=== PATIENT | male | born 1965 | race Caucasian/White ===

== ENCOUNTER 2018-03-18 11:27 | Inpatient (IN) | payer OTHER ==
[2018-03-18 11:58] VITALS: BMI 22.8
--- NOTE | 2018-03-18 15:06 | HP ---
CIWA Score Nausea/Vomitin-No Nausea/No Vomiting Muscle Tremors: 4-Moderate,w/Arms Extend Anxiety: 3 Agitation: 3 Paroxysmal Sweats: 3 Orientation: 0-Oriented Tacttile Disturbances: 1-Very Mild Itch/Numbness Auditory Disturbances: 0-None Visual Disturbances: 0-None Headache: 0-None Present CIWA-Ar Total Score: 14 - Admission Criteria OASAS Guidelines: Admission for Medically Managed Detox: Requires at least one of the followin. CIWA greater than 12 2. Seizures within the past 24 hours 3. Delirium tremens within the past 24 hours 4. Hallucinations within the past 24 hours 5. Acute intervention needed for co occurring medical disorder 6. Acute intervention needed for co occurring psychiatric disorder 7. Severe withdrawal that cannot be handled at a lower level of care (continued vomiting, continued diarrhea, abnormal vital signs) requiring intravenous medication and/or fluids 8. Admission ROS [facility] - HPI Chief Complaint: I need to stop drinking so much. Allergies/Adverse Reactions: Allergies Allergy/AdvReac Type Severity Reaction Status Date / Time No Known Drug Allergies Allergy Verified 03/18/18 13:11 History of Present Illness: pt is a 52yr old male with a history of alcohol dependence seeking detox for treatment. pt is also on a MMTP program last dose received today with 30mg. Pending verification. Exam Limitations: No Limitations - Ebola screening Have you traveled outside of the country in the last 21 days: No Have you had contact with anyone from an Ebola affected area: No Have you been sick,other than usual withdrawal symptoms: No Do you have a fever: No - Review of Systems Constitutional: Diaphoresis, Loss of Appetite, Night Sweats, Changes in sleep EENT: reports: Tearing, Nose Congestion Respiratory: reports: No Symptoms reported Cardiac: reports: No Symptoms Reported GI: reports: Diarrhea, Poor Fluid Intake : reports: No Symptoms Reported Musculoskeletal: reports: Back Pain Integumentary: reports: Flushing, Sweating Neuro: reports: Tingling, Tremors Endocrine: reports: Excessive Sweating, Flushing, Intolerance to Cold, Intolerance to Heat Hematology: reports: No Symptoms Reported Psychiatric: reports: Judgement Intact, Mood/Affect Appropiate, Orientated x3, Agitated, Anxious Other Systems: Reviewed and Negative Patient History - Patient Medical History Hx Anemia: No Hx Asthma: No Hx Chronic Obstructive Pulmonary Disease (COPD): No Hx Cancer: No Hx Cardiac Disorders: No Hx Congestive Heart Failure: No Hx Hypertension: Yes (non compliant with medications) Hx Hypercholesterolemia: No Hx Pacemaker: No HX Cerebrovascular Accident: No Hx Seizures: No Hx Dementia: No Hx Diabetes: No Hx Gastrointestinal Disorders: No Hx Liver Disease: No Hx Genitourinary Disorders: No Hx Sexually Transmitted Disorders: No Hx Renal Disease (ESRD): No Hx Thyroid Disease: No Hx Human Immunodeficiency Virus (HIV): No (negative) Hx Hepatitis C: Yes Hx Depression: Yes Hx Suicide Attempt: No Hx Bipolar Disorder: Yes Hx Schizophrenia: No Other Medical History: non compliant with medication - Patient Surgical History Past Surgical History: Yes Hx Neurologic Surgery: No Hx Cataract Extraction: No Hx Cardiac Surgery: No Hx Lung Surgery: No Hx Breast Surgery: No Hx Breast Biopsy: No Hx Abdominal Surgery: No Hx Appendectomy: No Hx Cholecystectomy: No Hx Genitourinary Surgery: No Hx Orthopedic Surgery: Yes (Left shoulder ORIF in 1983) Anesthesia Reaction: No - PPD History Previous Implant?: Yes Documented Results: Negative w/o proof Implanted On Prior [facility] Admission?: No PPD to be Administered?: Yes - Reproductive History Patient is a Female of Child Bearing Age (11 -55 yrs old): No - Smoking Cessation Smoking history: Current every day smoker Have you smoked in the past 12 months: Yes Aproximately how many cigarettes per day: 2 Cigars Per Day: 0 Hx Chewing Tobacco Use: No Initiated information on smoking cessation: Yes 'Breaking Loose' booklet given: 03/18/18 - Substance & Tx. History Hx Alcohol Use: Yes Hx Substance Use: No Substance Use Type: Alcohol Hx Substance Use Treatment: Yes (last detox [facility] 2018 8months ago) - Substances Abused Alcohol Route: Oral Frequency: Daily Amount used: 10 24oz of beer Age of first use: 13 Date of Last Use: 03/18/18 Family Disease History - Family Disease History Family Disease History: Diabetes: Mother Admission Physical Exam [facility] - Vital Signs Vital Signs: Vital Signs - 24 hr 03/18/18 11:56 Temperature 97.8 F Pulse Rate 115 H Respiratory 18 Rate Blood Pressure 137/97 - Physical General Appearance: Yes: Appropriately Dressed, Thin, Tremorous, Irritable, Sweating, Anxious HEENTM: Yes: Hearing grossly Normal, Normal Voice, Nasal Congestion, Rhinorrhea Respiratory: Yes: Lungs Clear, Normal Breath Sounds, No Respiratory Distress Neck: Yes: No masses,lesions,Nodules Breast: Yes: Within Normal Limits Cardiology: Yes: Regular Rhythm, Regular Rate, S1, S2, Tachycardia Genitourinary: Yes: Within Normal Limits Back: Yes: Normal Inspection Musculoskeletal: Yes: full range of Motion Extremities: Yes: Normal Capillary Refill, Normal Inspection, Non-Tender, Tremors Neurological: Yes: Fully Oriented, Alert, Normal Response Integumentary: Yes: Normal Color, Diaphoresis Lymphatic: Yes: Within Normal Limits - Diagnostic (1) Alcohol dependence with uncomplicated withdrawal Current Visit: Yes Status: Chronic (2) Methadone maintenance therapy patient Current Visit: Yes Status: Chronic Comment: pt last dose of methadone received today; pending verification. Cleared for Admission [facility] - Detox or Rehab [facility] Level of Care: Medically Managed Detox Regimen/Protocol: Librium [facility] Breath Alcohol Content Breath Alcohol Content: 0.116 Urine Drug Screen - Results Drug Screen Negative: No Urine Drug Screen Results: MTD-Methadone
[2018-03-18] MEDS ORDERED: guaiFENesin/D-METHORPHAN HB 10 ML UNIT-DOSE CUPS PO PRN (15:11)
[2018-03-18] MEDS ORDERED: MENTHOL/PHENOL 1 EACH UD MM PRN (15:11)
[2018-03-18] MEDS ORDERED: IBUPROFEN 400 MG TABLET (FP) PO PRN (15:11)
[2018-03-18] MEDS ORDERED: NICOTINE POLACRILEX 2 MG GUM BC PRN (15:11)
[2018-03-18] MEDS ORDERED: MAGNESIUM CITRATE 300 ML BOTTLE PO PRN (15:11)
[2018-03-18] MEDS ORDERED: MAG HYDROX/AL HYDROX/SIMETH 30 ML UNIT-DOSE CUP PO PRN (15:11)
[2018-03-18] MEDS ORDERED: ACETAMINOPHEN 325 MG TABLET (FP) PO PRN (15:11)
[2018-03-18] MEDS ORDERED: hydrOXYzine PAMOATE 50 MG CAPSULE (FP) PO PRN (15:11)
[2018-03-18] MEDS ORDERED: P-EPHED 60MG/TRIPROLIDI 2.5MG TABLET PO PRN (15:11)
[2018-03-18] MEDS ORDERED: LOPERAMIDE HCL 2 MG CAPSULE PO PRN (15:11)
[2018-03-18] MEDS ORDERED: MAGNESIUM HYDROX 2400MG/30ML ORAL SUSPENSION 30 ML CUP PO PRN (15:11)
[2018-03-18] MEDS ORDERED: chlordiazePOXIDE HCL 25 MG CAPSULE PO ONE (17:15)
[2018-03-18] MEDS: THIAMINE HCL 100 MG TABLET (FP) PO SCH (22:20)
[2018-03-18] MEDS: chlordiazePOXIDE HCL 25 MG CAPSULE PO SCH (22:21)
[2018-03-18 23:21] LABS: URINE APPEARANCE CLEAR; URINE BILIRUBIN NEGATIVE (<2.0 mg/dL); URINE COLOR AMBER; URINE GLUCOSE (UA) NEGATIVE (NEGATIVE); URINE KETONE NEGATIVE (NEGATIVE); URINE LEUK ESTERASE NEGATIVE (NEGATIVE); URINE NITRITE NEGATIVE (NEGATIVE); URINE PROTEIN 1+ (NEGATIVE)
[2018-03-18 23:27] LABS: URINE HYALINE CAST 10 /lpf; URINE MUCUS RARE
[2018-03-19] MEDS: MELATONIN 5 MG TABLETS PO PRN ×2 (00:55→22:36)
[2018-03-19] MEDS: chlordiazePOXIDE HCL 25 MG CAPSULE PO PRN ×2 (00:55→13:31)
[2018-03-19] MEDS: chlordiazePOXIDE HCL 25 MG CAPSULE PO SCH ×4 (05:22→22:36)
[2018-03-19] MEDS ORDERED: METHADONE HCL 10 MG TABLET PO ONE (09:52)
[2018-03-19] MEDS: LISINOPRIL 10 MG TABLET (FP) PO SCH (10:11)
[2018-03-19] MEDS: amLODIPine BESYLATE 5 MG TABLET (FP) PO SCH (10:11)
[2018-03-19] MEDS: PRENATAL VITAMINS W/ FOLIC ACID TABLET (FP) PO SCH (10:11)
[2018-03-19] MEDS: NICOTINE 7 MG/24 HOURS TOPICAL PATCH TD SCH (10:14)
[2018-03-19 11:07] LABS: ALBUMIN 3.4 g/dl (3.4-5.0); ALK PHOS 167 U/L (45-117); ANION GAP 9 MMOL/L (8-16); BILIRUBIN,TOTAL 1.8 mg/dL (0.2-1); BLOOD UREA NITROGEN 9 mg/dL (7-18); CALCIUM 9.3 mg/dL (8.5-10.1); CHLORIDE 95 mmol/L (98-107); CO2 27 mmol/L (21-32); CREATININE 0.9 mg/dL (0.55-1.3); GLUCOSE,RANDOM 120 mg/dL (74-106); POTASSIUM 4.1 mmol/L (3.5-5.1); SGOT/AST 230 U/L (15-37); SGPT/ALT 110 U/L (13-61); SODIUM 131 mmol/L (136-145); TOT PROT 8.8 g/dl (6.4-8.2)
[2018-03-19 11:18] LABS: HEMATOCRIT 35.3 % (35.4-49); HEMOGLOBIN 12.4 GM/dL (11.7-16.9); MCH 33.9 pg (25.7-33.7); MCHC 35.2 g/dl (32.0-35.9); MEAN CELL VOLUME 96.4 fl (80-96); PLATELET COUNT 88 K/MM3 (134-434); RBC 3.66 M/mm3 (4.00-5.60); RDW 13.3 % (11.9-15.9); WHITE BLOOD COUNT 4.3 K/mm3 (4.0-10.0)
--- NOTE | 2018-03-19 11:19 | PN ---
S CIWA - CIWA Score Nausea/Vomitin-No Nausea/No Vomiting Muscle Tremors: 3 Anxiety: 3 Agitation: 3 Paroxysmal Sweats: 3 Orientation: 0-Oriented Tacttile Disturbances: 0-None Auditory Disturbances: 0-None Visual Disturbances: 0-None Headache: 0-None Present CIWA-Ar Total Score: 12 S Progress Note (SOAP) Subjective: nausea sweats shakes interrupted sleep irritable Objective: 03/19/18 11:18 Vital Signs Temperature 95.9 F L 03/19/18 09:42 Pulse Rate 85 03/19/18 09:42 Respiratory Rate 18 03/19/18 09:42 Blood Pressure 146/95 03/19/18 09:42 O2 Sat by Pulse Oximetry (%) Laboratory Tests 03/18/18 03/19/18 23:00 07:00 Sodium 131 L Potassium 4.1 Chloride 95 L Carbon Dioxide 27 Anion Gap 9 BUN 9 Creatinine 0.9 Creat Clearance w eGFR > 60 Random Glucose 120 H Calcium 9.3 Total Bilirubin 1.8 H AST 230 H ALT 110 H Alkaline Phosphatase 167 H Total Protein 8.8 H Albumin 3.4 Urine Color [place] Urine Appearance Clear Urine pH 6.0 Ur Specific [place] 1.025 Urine Protein 1+ H Urine Glucose (UA) Negative Urine Ketones Negative Urine Blood Negative Urine Nitrite Negative Urine Bilirubin Negative Urine Urobilinogen 2.0 Ur Leukocyte Esterase Negative Urine WBC (Auto) 1 Urine RBC (Auto) 3 Hyaline Casts 10 Urine Mucus Rare labs noted [id number] ambulating no acute distress repeat cmp d/c tylenol Assessment: 03/19/18 11:20 withdrawal sx Plan: continue detox increase fluids repeat labs
[2018-03-19] MEDS ORDERED: PNEUMOC 13-VAL CONJ-DIP CRM/PF 0.5 ML DISP.SYRIN IM ONE (12:00)
[2018-03-19] MEDS ORDERED: PNEUMOCOCCAL 23 VACCINE 0.5 ML VIAL IM ONE (12:00)
--- NOTE | 2018-03-19 12:47 | EKG ---
Test Reason : Blood Pressure : / mmHG Vent. Rate : 071 BPM Atrial Rate : 071 BPM P-R Int : 136 ms QRS Dur : 080 ms QT Int : 382 ms P-R-T Axes : 074 067 070 degrees QTc Int : 415 ms NORMAL SINUS RHYTHM NORMAL ECG NO PREVIOUS ECGS AVAILABLE Confirmed by KIRK DORMAN, KRISTA ([id number]) on 03/19/2018 12:47:25 PM Referred By: Confirmed By:KRISTA BRADLEY MD
[2018-03-19] MEDS: THIAMINE HCL 100 MG TABLET (FP) PO SCH (22:36)
[2018-03-20] MEDS: METHADONE HCL 10 MG TABLET PO SCH (05:52)
[2018-03-20] MEDS: chlordiazePOXIDE HCL 25 MG CAPSULE PO SCH ×2 (05:52→10:46)
[2018-03-20 10:28] LABS: ALBUMIN 3.5 g/dl (3.4-5.0); ALK PHOS 175 U/L (45-117); ANION GAP 6 MMOL/L (8-16); BILIRUBIN,TOTAL 1.2 mg/dL (0.2-1); BLOOD UREA NITROGEN 15 mg/dL (7-18); CALCIUM 9.5 mg/dL (8.5-10.1); CHLORIDE 98 mmol/L (98-107); CO2 30 mmol/L (21-32); CREATININE 1.2 mg/dL (0.55-1.3); GLUCOSE,RANDOM 92 mg/dL (74-106); POTASSIUM 4.8 mmol/L (3.5-5.1); SGOT/AST 214 U/L (15-37); SGPT/ALT 111 U/L (13-61); SODIUM 133 mmol/L (136-145); TOT PROT 8.9 g/dl (6.4-8.2)
[2018-03-20] MEDS: PRENATAL VITAMINS W/ FOLIC ACID TABLET (FP) PO SCH (10:47)
[2018-03-20] MEDS: LISINOPRIL 10 MG TABLET (FP) PO SCH (10:47)
[2018-03-20] MEDS: amLODIPine BESYLATE 5 MG TABLET (FP) PO SCH (10:48)
[2018-03-20] MEDS: NICOTINE 7 MG/24 HOURS TOPICAL PATCH TD SCH (10:50)
[2018-03-20] MEDS ORDERED: LACTULOSE 20 GM/30 ML UDC (FOR ORAL USE ONLY) PO ONE (11:50)
--- NOTE | 2018-03-20 12:23 | PN ---
[facility] Progress Note Note: during assessment pt wanted to leave but when asked he states his brother was outside waiting. pt was also asked where he was at this time and he states he was at [facility]. Pt was aao to person, time, but not to place. Pt appeared restless. Ammonia level drawn 45.16. laculose ordered. pt is being compliant with staying in his room and taking the medication. Pt is not asking to leave at this time. will reassess and re draw ammonia levels tomorrow.
--- NOTE | 2018-03-20 12:30 | PN ---
[facility] CIWA - CIWA Score Nausea/Vomitin-No Nausea/No Vomiting Muscle Tremors: 3 Anxiety: 3 Agitation: 4-Moderately Restless Paroxysmal Sweats: No Perspiration Orientation: 1-Uncertain about Date Tacttile Disturbances: 0-None Auditory Disturbances: 0-None Visual Disturbances: 0-None Headache: 0-None Present CIWA-Ar Total Score: 11 [facility] Progress Note (SOAP) Subjective: restless shaky Objective: 03/20/18 12:29 Vital Signs Temperature 97.5 F L 03/20/18 09:33 Pulse Rate 99 H 03/20/18 09:33 Respiratory Rate 18 03/20/18 09:33 Blood Pressure 138/59 L 03/20/18 09:33 O2 Sat by Pulse Oximetry (%) Laboratory Tests 03/18/18 03/19/18 03/19/18 23:00 07:00 07:00 WBC 4.3 RBC 3.66 L Hgb 12.4 Hct 35.3 L MCV 96.4 H MCH 33.9 H MCHC 35.2 RDW 13.3 Plt Count 88 L MPV 9.0 Platelet Comment No clumping noted Sodium Potassium Chloride Carbon Dioxide Anion Gap BUN Creatinine Creat Clearance w eGFR Random Glucose Calcium Total Bilirubin AST ALT Alkaline Phosphatase Ammonia Total Protein Albumin Urine Color Darling Urine Appearance Clear Urine pH 6.0 Ur Specific [place] 1.025 Urine Protein 1+ H Urine Glucose (UA) Negative Urine Ketones Negative Urine Blood Negative Urine Nitrite Negative Urine Bilirubin Negative Urine Urobilinogen 2.0 Ur Leukocyte Esterase Negative Urine WBC (Auto) 1 Urine RBC (Auto) 3 Hyaline Casts 10 Urine Mucus Rare RPR Titer HIV 1&2 Antibody Screen Negative HIV P24 Antigen Negative 03/19/18 03/19/18 03/20/18 07:00 07:00 07:00 WBC RBC Hgb Hct MCV MCH MCHC RDW Plt Count MPV Platelet Comment Sodium 131 L 133 L Potassium 4.1 4.8 Chloride 95 L 98 Carbon Dioxide 27 30 Anion Gap 9 6 L BUN 9 15 Creatinine 0.9 1.2 Creat Clearance w eGFR > 60 > 60 Random Glucose 120 H 92 Calcium 9.3 9.5 Total Bilirubin 1.8 H 1.2 H AST 230 H 214 H ALT 110 H 111 H Alkaline Phosphatase 167 H 175 H Ammonia Total Protein 8.8 H 8.9 H Albumin 3.4 3.5 Urine Color Urine Appearance Urine pH Ur Specific [place] Urine Protein Urine Glucose (UA) Urine Ketones Urine Blood Urine Nitrite Urine Bilirubin Urine Urobilinogen Ur Leukocyte Esterase Urine WBC (Auto) Urine RBC (Auto) Hyaline Casts Urine Mucus RPR Titer Nonreactive HIV 1&2 Antibody Screen HIV P24 Antigen 03/20/18 09:03 WBC RBC Hgb Hct MCV MCH MCHC RDW Plt Count MPV Platelet Comment Sodium Potassium Chloride Carbon Dioxide Anion Gap BUN Creatinine Creat Clearance w eGFR Random Glucose Calcium Total Bilirubin AST ALT Alkaline Phosphatase Ammonia 45.16 H Total Protein Albumin Urine Color Urine Appearance Urine pH Ur Specific [place] Urine Protein Urine Glucose (UA) Urine Ketones Urine Blood Urine Nitrite Urine Bilirubin Urine Urobilinogen Ur Leukocyte Esterase Urine WBC (Auto) Urine RBC (Auto) Hyaline Casts Urine Mucus RPR Titer HIV 1&2 Antibody Screen HIV P24 Antigen elevated ammonia level laculose ordered will repeat lab tomorrow Assessment: 03/20/18 12:29 withdrawals sx Plan: hold todays librium laculose ordered repeat ammonia level continue with detox if pt is more lucid.
[2018-03-20] MEDS: LACTULOSE 20 GM/30 ML UDC (FOR ORAL USE ONLY) PO SCH ×3 (14:18→22:16)
[2018-03-20] MEDS: THIAMINE HCL 100 MG TABLET (FP) PO SCH (22:16)
[2018-03-20] MEDS: chlordiazePOXIDE 5 MG CAPSULE PO SCH (22:16)
[2018-03-21] MEDS: METHADONE HCL 10 MG TABLET PO SCH (05:14)
[2018-03-21] MEDS: chlordiazePOXIDE 5 MG CAPSULE PO SCH ×3 (05:53→17:21)
[2018-03-21] MEDS: NICOTINE 7 MG/24 HOURS TOPICAL PATCH TD SCH (10:07)
[2018-03-21] MEDS: PRENATAL VITAMINS W/ FOLIC ACID TABLET (FP) PO SCH (10:09)
[2018-03-21] MEDS: LACTULOSE 20 GM/30 ML UDC (FOR ORAL USE ONLY) PO SCH ×4 (10:09→22:25)
--- NOTE | 2018-03-21 18:24 | PN ---
[facility] Progress Note (SOAP) Subjective: sweats Objective: 03/21/18 18:22 A & O x 3 anxious ambulating steadily on unit Vital Signs Temperature 98.2 F 03/21/18 17:17 Pulse Rate 85 03/21/18 17:17 Respiratory Rate 18 03/21/18 17:17 Blood Pressure 97/53 L 03/21/18 17:17 O2 Sat by Pulse Oximetry (%) low bp, denies dizziness nor other cardiac related complaints Assessment: 03/21/18 18:23 withdrawal sx hypotension Plan: continue detox increase hydration continue bp /symptoms monitoring for d/c in a.m
[2018-03-21] MEDS: THIAMINE HCL 100 MG TABLET (FP) PO SCH (22:25)
[2018-03-21] MEDS: chlordiazePOXIDE HCL 10 MG CAPSULE PO SCH (22:46)
[2018-03-22] MEDS: chlordiazePOXIDE HCL 10 MG CAPSULE PO SCH (05:30)
[2018-03-22] MEDS: METHADONE HCL 10 MG TABLET PO SCH (05:39)
[2018-03-22 09:51] VITALS: BP 103/70; PULSE 108; TEMP 99.5
[2018-03-22] MEDS: PRENATAL VITAMINS W/ FOLIC ACID TABLET (FP) PO SCH (10:10)
[2018-03-22] MEDS: LACTULOSE 20 GM/30 ML UDC (FOR ORAL USE ONLY) PO SCH (10:12)
[2018-03-22] MEDS: NICOTINE 7 MG/24 HOURS TOPICAL PATCH TD SCH (10:12)
--- NOTE | 2018-03-22 11:15 | DS ---
[facility] Detox Discharge Summary Admission Date: 03/18/18 Discharge Date: 03/22/18 - History Present History: Alcohol Dependence Additional Comments: 52 years old male admitted on 03/18/18 for alcohol withdrawal stabilization completed detox regimen tolerated well alert no acute distress aftercare [facility] Pertinent Past History: patient preferred to go home today and will consider return to [facility] tomorrow - Physical Exam Results Vital Signs: Vital Signs Temperature 99.5 F 03/22/18 09:50 Pulse Rate 108 H 03/22/18 09:50 Respiratory Rate 18 03/22/18 09:50 Blood Pressure 103/70 03/22/18 09:50 O2 Sat by Pulse Oximetry (%) Pertinent Admission Physical Exam Findings: alcohol withdrawal sx Vital Signs Temperature 99.5 F 03/22/18 09:50 Pulse Rate 108 H 03/22/18 09:50 Respiratory Rate 18 03/22/18 09:50 Blood Pressure 103/70 03/22/18 09:50 O2 Sat by Pulse Oximetry (%) Laboratory Last Values WBC 4.3 K/mm3 (4.0-10.0) 03/19/18 07:00 RBC 3.66 M/mm3 (4.00-5.60) L 03/19/18 07:00 Hgb 12.4 GM/dL (11.7-16.9) 03/19/18 07:00 Hct 35.3 % (35.4-49) L 03/19/18 07:00 MCV 96.4 fl (80-96) H 03/19/18 07:00 MCH 33.9 pg (25.7-33.7) H 03/19/18 07:00 MCHC 35.2 g/dl (32.0-35.9) 03/19/18 07:00 RDW 13.3 % (11.9-15.9) 03/19/18 07:00 Plt Count 88 K/MM3 (134-434) L 03/19/18 07:00 MPV 9.0 fl (7.5-11.1) 03/19/18 07:00 Platelet Comment No clumping noted 03/19/18 07:00 Sodium 133 mmol/L (136-145) L 03/20/18 07:00 Potassium 4.8 mmol/L (3.5-5.1) 03/20/18 07:00 Chloride 98 mmol/L (98-107) 03/20/18 07:00 Carbon Dioxide 30 mmol/L (21-32) 03/20/18 07:00 Anion Gap 6 MMOL/L (8-16) L 03/20/18 07:00 BUN 15 mg/dL (7-18) 03/20/18 07:00 Creatinine 1.2 mg/dL (0.55-1.3) 03/20/18 07:00 Creat Clearance w eGFR > 60 (>60) 03/20/18 07:00 Random Glucose 92 mg/dL (74-106) 03/20/18 07:00 Calcium 9.5 mg/dL (8.5-10.1) 03/20/18 07:00 Total Bilirubin 1.2 mg/dL (0.2-1) H 03/20/18 07:00 AST 214 U/L (15-37) H 03/20/18 07:00 ALT 111 U/L (13-61) H 03/20/18 07:00 Alkaline Phosphatase 175 U/L (45-117) H 03/20/18 07:00 Ammonia 45.16 umol/L (11-32) H 03/20/18 09:03 Total Protein 8.9 g/dl (6.4-8.2) H 03/20/18 07:00 Albumin 3.5 g/dl (3.4-5.0) 03/20/18 07:00 Urine Color Darling 03/18/18 23:00 Urine Appearance Clear 03/18/18 23:00 Urine pH 6.0 (5.0-8.0) 03/18/18 23:00 Ur Specific [place] 1.025 (1.010-1.035) 03/18/18 23:00 Urine Protein 1+ (NEGATIVE) H 03/18/18 23:00 Urine Glucose (UA) Negative (NEGATIVE) 03/18/18 23:00 Urine Ketones Negative (NEGATIVE) 03/18/18 23:00 Urine Blood Negative (NEGATIVE) 03/18/18 23:00 Urine Nitrite Negative (NEGATIVE) 03/18/18 23:00 Urine Bilirubin Negative (<2.0 mg/dL) 03/18/18 23:00 Urine Urobilinogen 2.0 mg/dL (0.2-1.0) 03/18/18 23:00 Ur Leukocyte Esterase Negative (NEGATIVE) 03/18/18 23:00 Urine WBC (Auto) 1 /hpf (3-5) 03/18/18 23:00 Urine RBC (Auto) 3 /hpf (0-3) 03/18/18 23:00 Hyaline Casts 10 /lpf 03/18/18 23:00 Urine Mucus Rare 03/18/18 23:00 RPR Titer Nonreactive (NONREACTIVE) 03/19/18 07:00 HIV 1&2 Antibody Screen Negative 03/19/18 07:00 HIV P24 Antigen Negative 03/19/18 07:00 lab noted strong recommend the patient follow up with methadone maintenance program provider for liver enzyme elevation and avoid motrin due to low plate a copy of lab result provided to the patient - Treatment Hospital Course: Detox Protocol Followed, Detoxed Safely, Responded well, Discharged Condition Good, Rehab Referral Accepted Patient has Accepted a Rehab Referral to: [facility], [place] - Medication Discharge Medications: Ambulatory Orders Amlodipine Besylate 5 mg PO DAILY 03/18/18 Cyanocobalamin [Vitamin B12 -] 100 mcg PO DAILY 03/18/18 Folic Acid - 1 mg PO DAILY 03/18/18 Multivitamin [Multiple Vitamins] 1 each PO DAILY 03/18/18 Thiamine HCl [Vitamin B1 -] 100 mg PO DAILY 03/18/18 Amlodipine Besylate [Norvasc -] 5 mg PO DAILY #14 tablet 03/22/18 Lisinopril [Prinivil] 10 mg PO DAILY #14 tablet 03/22/18 - Diagnosis (1) Hypertension Current Visit: Yes Status: Chronic Qualifiers: Hypertension type: essential hypertension Qualified Code(s): I10 - Essential (primary) hypertension (2) Alcohol dependence with uncomplicated withdrawal Current Visit: Yes Status: Acute (3) Methadone maintenance therapy patient Current Visit: Yes Status: Chronic - AMA Did Patient Leave Against Medical Advice: No
== END 2018-03-22 10:38 | disposition home or self-care (01) | DRG 773 ==
LOC: YASAS 11:27 → Y6N 16:45
PROC: HZ2ZZZZ Detoxification Services for Substance Abuse Treatment (ICD-10-PCS; principal; 2018-03-18)
DX: F10.230 Alcohol dependence with withdrawal, uncomplicated (principal); F11.20 Opioid dependence, uncomplicated; F17.210 Nicotine dependence, cigarettes, uncomplicated; I10 Essential (primary) hypertension; R00.0 Tachycardia, unspecified; Z91.14 Patient's other noncompliance with medication regimen
CPT/HCPCS: 36415; 80053; 81003; 81015; 82140; 85027; 86593; 87389; 93005; 93010

== ENCOUNTER 2018-10-02 12:15 | Inpatient (IN) | payer OTHER ==
[2018-10-02 17:19] VITALS: BMI 22.8
--- NOTE | 2018-10-02 18:42 | HP ---
"COWS - Scale Resting Pulse: 0= [place] 80 or Below Sweatin=Flushed/Facial Moisture Restless Observation: 1= Difficult to Sit Still Pupil Size: 2= Moderately Dilated (Pupils = 5 mm) Bone or Joint Aches: 0= None Runny Nose/ Eye Tearin= Runny Nose/Eyes GI Upset > 30mins: 0= None Tremor Observation: 4= Gross Tremor/Twitching Yawning Observation: 0= None Anxiety or Irritability: 1=Feels Anxious/Irritable Goose Flesh Skin: 0=Smooth Skin COWS Score: 12 CIWA Score Nausea/Vomitin-No Nausea/No Vomiting Muscle Tremors: 7-Severe,w/o Arm Extended Anxiety: 1-Mildly Anxious Agitation: 4-Moderately Restless Paroxysmal Sweats: 3 (Increased facial moisture) Orientation: 3-Disoriented Date>2 days Tacttile Disturbances: 0-None Auditory Disturbances: 0-None Visual Disturbances: 0-None Headache: 0-None Present CIWA-Ar Total Score: 18 - Admission Criteria OAS Guidelines: Admission for Medically Managed Detox: Requires at least one of the followin. CIWA greater than 12 2. Seizures within the past 24 hours 3. Delirium tremens within the past 24 hours 4. Hallucinations within the past 24 hours 5. Acute intervention needed for co occurring medical disorder 6. Acute intervention needed for co occurring psychiatric disorder 7. Severe withdrawal that cannot be handled at a lower level of care (continued vomiting, continued diarrhea, abnormal vital signs) requiring intravenous medication and/or fluids 8. Patient presents the following: CIWA greater than 12 Admission Criteria Met: Admission criteria met Admission ROS [facility] Chief Complaint: Having Alcohol and heroin withdrawal. Allergies/Adverse Reactions: Allergies Allergy/AdvReac Type Severity Reaction Status Date / Time No Known Drug Allergies Allergy Verified 03/18/18 13:11 History of Present Illness: 53 yo w/ alcohol and opioid withdrawal presents for detox. Stopped [facility] in August. Just stopped going. Alcohol use began at age 17. Current use x years Heroin use began at age 21. Current use = 3 bags/day. Nasal and IV; Shares needles and works. Nicotine use began @ age 13. Currently smokes 1 cigarette/day. [place] hx seizures, overdose, blackouts. Denies any length of sobriety over 1 day unless in detox. PMHx: HTN, Hep C - abn liver enzymes Reviewed EKG @ [facility] on 03/18/18 = WNL MHHx: Denies depression. Denies thoughts of harming self or others. Search Terms: Karan Dias, 1965 Search Date: 10/02/2018 07:00:15 PM The Drug Utilization Report below displays all of the controlled substance prescriptions, if any, that your patient has filled in the last twelve months. The information displayed on this report is compiled from pharmacy submissions to the Department, and accurately reflects the information as submitted by the pharmacies. This report was requested by: Eryn Godoy | Reference #: [id number] There are no results for the search terms that you entered. Search Terms: Karan Dias, 1965 Search Date: 10/02/2018 07:00:41 PM States Searched: [place], [place], [place], [place], [place], [place], [place] The Drug Utilization Report below displays the controlled substance prescriptions, if any, that were dispensed in the indicated state(s). The information displayed on this report is compiled from requests submitted to other states' PMPs, and accurately reflects the information as returned by them. Blank hills indicate data not provided by other state. This report was requested by: Eryn Godoy | Reference #: [id number] Exam Limitations: No Limitations - Ebola screening Have you traveled outside of the country in the last 21 days: No Have you had contact with anyone from an Ebola affected area: No Have you been sick,other than usual withdrawal symptoms: No (Denies recent exposure to measles) Do you have a fever: No - Review of Systems Constitutional: Chills, Diaphoresis, Changes in sleep (Difficulty staying asleep.) EENT: reports: Blurred Vision, Nose Congestion Respiratory: reports: SOB with Exertion (Climbing stairs and walking) Cardiac: reports: No Symptoms Reported GI: reports: Diarrhea (watery, brown) : reports: No Symptoms Reported Musculoskeletal: reports: Joint Pain ((L) shpulder arthritis . Sharp pain when tries to lift arm.) Integumentary: reports: No Symptoms Reported Neuro: reports: Numbness (In legs and arms w/ intermittent cramping x months) Endocrine: reports: No Symptoms Reported Hematology: reports: No Symptoms Reported Psychiatric: reports: Judgement Intact, Agitated, Anxious, Disorientated ( Unsure of date/month. Knows year and presnt location) Patient History - Patient Medical History Hx Anemia: No Hx Asthma: No Hx Chronic Obstructive Pulmonary Disease (COPD): No Hx Cancer: No Hx Cardiac Disorders: No Hx Congestive Heart Failure: No Hx Hypertension: Yes (non compliant with medications) Hx Hypercholesterolemia: No Hx Pacemaker: No HX Cerebrovascular Accident: No Hx Seizures: No Hx Dementia: No Hx Diabetes: No Hx Gastrointestinal Disorders: No Hx Liver Disease: No Hx Genitourinary Disorders: No Hx Sexually Transmitted Disorders: No Hx Renal Disease (ESRD): No Hx Thyroid Disease: No Hx Human Immunodeficiency Virus (HIV): No (negative) Hx Hepatitis C: Yes Hx Depression: Yes Hx Suicide Attempt: No Hx Bipolar Disorder: Yes Hx Schizophrenia: No - Patient Surgical History Past Surgical History: Yes Hx Neurologic Surgery: No Hx Cataract Extraction: No Hx Cardiac Surgery: No Hx Lung Surgery: No Hx Breast Surgery: No Hx Breast Biopsy: No Hx Abdominal Surgery: No Hx Appendectomy: No Hx Cholecystectomy: No Hx Genitourinary Surgery: No Hx Orthopedic Surgery: Yes (Left shoulder ORIF in 1983) Anesthesia Reaction: No - PPD History Previous Implant?: Yes Documented Results: Positive w/o proof Implanted On Prior R Admission?: Yes Date: 03/20/18 PPD to be Administered?: No - Smoking Cessation Smoking history: Current every day smoker Have you smoked in the past 12 months: Yes Aproximately how many cigarettes per day: 2 Cigars Per Day: 0 Hx Chewing Tobacco Use: No Initiated information on smoking cessation: Yes 'Breaking Loose' booklet given: 10/02/18 - Substance & Tx. History Hx Alcohol Use: Yes Hx Substance Use: Yes Substance Use Type: Alcohol, Heroin Hx Substance Use Treatment: Yes (detox, rehab, past [facility] ) - Substances abused Alcohol Substance route: Oral Frequency: Daily Amount used: beer, 6 240z cans Age of first use: 17 Date of last use: 10/01/18 Heroin Substance route: Inhalation Frequency: Daily Amount used: 3 bags Age of first use: 21 Date of last use: 10/01/18 Family Disease History - Family Disease History Family Disease History: Diabetes: Mother Admission Physical Exam BHS - Vital Signs Vital Signs: Vital Signs - 24 hr 10/02/18 17:13 Temperature 98 F Pulse Rate 64 Respiratory 16 Rate Blood Pressure 162/92 - Physical General Appearance: Yes: Mild Distress, Thin, Tremorous, Sweating (Increased facial moisture) HEENTM: Yes: EOMI, Hearing grossly Normal, Normocephalic, Normal Voice, MATTHEW ( Pupils = 5 mm), Pharynx Normal, Nasal Congestion, Rhinorrhea Respiratory: Yes: Lungs Clear (O2 Sat = 97%), Normal Breath Sounds, No Respiratory Distress Neck: Yes: No masses,lesions,Nodules, Supple Breast: Yes: Breast Exam Deferred Cardiology: Yes: Regular Rhythm, Regular Rate (HR: 66), S1, S2 Abdominal: Yes: Flat, Soft, Increased Bowel Sounds, Tenderness (RUQ tenderness upon palpation. No guarding. No rebound.) Genitourinary: Yes: Within Normal Limits Back: Yes: Normal Inspection Musculoskeletal: Yes: Gait Steady, Joint Stiffness ((L) shoulder w/ deformiting of clavicle) Extremities: Yes: Normal Capillary Refill, Tremors (Gross @ rest) Neurological: Yes: injury/safety hazard assessment II-XII NML intact, Alert, Motor Strength 5/5, Normal Response, Disoriented (Unsure of date/month. Knows year and presnt location) Integumentary: Yes: Normal Color, Warm, Track [place] (OLD TRACK [place] BOTH ANTECUBITAL AREAS) Lymphatic: Yes: Within Normal Limits - Diagnostic (1) Opioid dependence with withdrawal Current Visit: Yes Status: Acute (2) Alcohol dependence with uncomplicated withdrawal Current Visit: Yes Status: Acute Comment: Hx abnormal LFT's (3) Hypertension Current Visit: Yes Status: Chronic Qualifiers: Hypertension type: essential hypertension Qualified Code(s): I10 - Essential (primary) hypertension (4) Nicotine abuse Current Visit: Yes Status: Chronic Cleared for Admission [facility] - Detox or Rehab [facility] Level of Care: Medically Managed Detox Regimen/Protocol: Methadone/Librium Claeared for Rehab Admission: No Breathalyzer - Breathalyzer Breathalyzer: 0.035 Urine Drug Screen - Test Device Lot number: [id number] Expiration date: 07/08/19 - Control Is test valid?: Yes - Results Drug screen NEGATIVE: No Urine drug screen results: MOP-Opiates Inpatient Rehab Admission - Rehab Decision to Admit Inpatient rehab admission?: No"
[2018-10-02] MEDS ORDERED: IBUPROFEN 400 MG TABLET (FP) PO PRN (19:25)
[2018-10-02] MEDS ORDERED: ACETAMINOPHEN 325 MG TABLET (FP) PO PRN ×2 (19:25)
[2018-10-02] MEDS ORDERED: METHOCARBAMOL 500 MG TABLET PO PRN (19:25)
[2018-10-02] MEDS ORDERED: MENTHOL/PHENOL 1 EACH UD MM PRN (19:25)
[2018-10-02] MEDS ORDERED: MAGNESIUM HYDROX 2400MG/30ML ORAL SUSPENSION 30 ML CUP PO PRN (19:25)
[2018-10-02] MEDS ORDERED: chlordiazePOXIDE HCL 10 MG CAPSULE PO PRN (19:25)
[2018-10-02] MEDS ORDERED: METHADONE HCL 10 MG TABLET (FOR DETOX USE ONLY) PO ONE (19:25)
[2018-10-02] MEDS ORDERED: MAGNESIUM CITRATE 300 ML BOTTLE PO PRN (19:25)
[2018-10-02] MEDS ORDERED: NICOTINE POLACRILEX 2 MG GUM BUC PRN (19:25)
[2018-10-02] MEDS ORDERED: BISMUTH SUBSALICYLATE 524 MG/30 ML UD PO PRN (19:25)
[2018-10-02] MEDS ORDERED: MAG HYDROX/AL HYDROX/SIMETH 30 ML UNIT-DOSE CUP PO PRN (19:25)
[2018-10-02] MEDS ORDERED: cloNIDine HCL 0.1 MG TABLET PO PRN (19:25)
[2018-10-02] MEDS ORDERED: cloNIDine HCL 0.1 MG TABLET PO ONE (19:29)
[2018-10-02] MEDS: THIAMINE HCL 100 MG TABLET (FP) PO SCH (22:28)
[2018-10-02] MEDS: chlordiazePOXIDE HCL 25 MG CAPSULE PO SCH (22:28)
[2018-10-02] MEDS: MELATONIN 5 MG TABLETS PO PRN (22:29)
[2018-10-03] MEDS: chlordiazePOXIDE HCL 25 MG CAPSULE PO SCH ×3 (05:37→22:32)
[2018-10-03] MEDS ORDERED: METHADONE HCL 5 MG TABLET (FOR DETOX USE ONLY) PO ONE (10:00)
--- NOTE | 2018-10-03 10:34 | PN ---
S CIWA - CIWA Score Nausea/Vomitin-No Nausea/No Vomiting Muscle Tremors: 2 Anxiety: 3 Agitation: 2 Paroxysmal Sweats: 3 Orientation: 0-Oriented Tacttile Disturbances: 0-None Auditory Disturbances: 0-None Visual Disturbances: 0-None Headache: 2-Mild CIWA-Ar Total Score: 12 S COWS - Scale Resting Pulse: 1= [place] 81-100 Sweatin= Beads of Sweat on Face Restless Observation: 1= Difficult to Sit Still Pupil Size: 0= Normal to Room Light Bone or Joint Aches: 0= None Runny Nose/ Eye Tearin= None GI Upset > 30mins: 1= Stomach Cramp Tremor Observation of Outstretched Hands: 2= Slight Tremor Visible Yawning Observation: 1= 1-2x During Session Anxiety or Irritability: 2=Irritable/Anxious Goose Flesh Skin: 0=Smooth Skin COWS Score: 11 S Progress Note (SOAP) Subjective: c/o anxiety/irritability, headache, stomach cramp, shakes, and sweats. Objective: 10/03/18 10:33 Vital Signs 10/03/18 10/03/18 10/03/18 03:30 06:00 06:05 Temperature 97.7 F Pulse Rate 49 L 60 Respiratory 18 16 18 Rate Blood Pressure 173/99 H 156/79 10/03/18 10/03/18 07:00 09:30 Temperature 98.6 F Pulse Rate 61 65 Respiratory 18 16 Rate Blood Pressure 122/77 133/91 Labs pending. Assessment: 10/03/18 10:33 AOX3, in no respiratory distress. Full ROM, ambulating in the unit. Withdrawal symptoms Plan: continue detox.
[2018-10-03 10:50] LABS: PH,URINE 5.5 (5.0-8.0); URINE APPEARANCE TURBID; URINE BILIRUBIN NEGATIVE (NEGATIVE); URINE COLOR DK YELLOW; URINE GLUCOSE (UA) NEGATIVE (NEGATIVE); URINE KETONE TRACE (NEGATIVE); URINE LEUK ESTERASE NEGATIVE (NEGATIVE); URINE NITRITE NEGATIVE (NEGATIVE); URINE PROTEIN TRACE (NEGATIVE)
[2018-10-03] MEDS: amLODIPine BESYLATE 5 MG TABLET (FP) PO SCH (10:52)
[2018-10-03] MEDS: LISINOPRIL 10 MG TABLET (FP) PO SCH (10:53)
[2018-10-03] MEDS: PRENATAL VITAMINS W/ FOLIC ACID TABLET (FP) PO SCH (10:53)
[2018-10-03 13:06] LABS: HEMATOCRIT 32.8 % (35.4-49); MCH 32.6 pg (25.7-33.7); MCHC 33.6 g/dl (32.0-35.9); MEAN PLT VOLUME 8.7 fl (7.5-11.1); PLATELET COUNT 106 K/MM3 (134-434); RBC 3.38 M/mm3 (4.00-5.60); WHITE BLOOD COUNT 3.7 K/mm3 (4.0-10.0)
[2018-10-03 13:13] LABS: ALBUMIN 3.3 g/dl (3.4-5.0); BILIRUBIN,TOTAL 0.9 mg/dL (0.2-1); BLOOD UREA NITROGEN 13.9 mg/dL (7-18); CALCIUM 9.4 mg/dL (8.5-10.1); CREATININE 0.8 mg/dL (0.55-1.3); POTASSIUM 3.7 mmol/L (3.5-5.1); TOT PROT 8.5 g/dl (6.4-8.2)
[2018-10-03] MEDS: MELATONIN 5 MG TABLETS PO PRN (22:32)
[2018-10-03] MEDS: THIAMINE HCL 100 MG TABLET (FP) PO SCH (22:32)
[2018-10-04] MEDS: chlordiazePOXIDE 5 MG CAPSULE PO SCH ×3 (05:57→22:33)
[2018-10-04] MEDS ORDERED: METHADONE HCL 10 MG TABLET (FOR DETOX USE ONLY) PO ONE (10:00)
[2018-10-04] MEDS: PRENATAL VITAMINS W/ FOLIC ACID TABLET (FP) PO SCH (10:33)
[2018-10-04] MEDS: amLODIPine BESYLATE 5 MG TABLET (FP) PO SCH (10:33)
[2018-10-04] MEDS: LISINOPRIL 10 MG TABLET (FP) PO SCH (10:33)
[2018-10-04] MEDS ORDERED: BISACODYL 5 MG TABLET.DR (FP) PO ONE (13:00)
--- NOTE | 2018-10-04 14:36 | PN ---
[facility] CIWA - CIWA Score Nausea/Vomitin-Mild Nausea/No Vomiting Muscle Tremors: 3 Anxiety: 3 Agitation: 3 Paroxysmal Sweats: 2 Orientation: 0-Oriented Tacttile Disturbances: 0-None Auditory Disturbances: 0-None Visual Disturbances: 0-None Headache: 0-None Present CIWA-Ar Total Score: 12 BHS COWS - Scale Resting Pulse: 0= [place] 80 or Below Sweatin= Chills/Flushing Restless Observation: 3= Extraneous Movement Pupil Size: 0= Normal to Room Light Bone or Joint Aches: 1= Mild Discomfort Runny Nose/ Eye Tearin= Runny Nose/Eyes GI Upset > 30mins: 2= Nausea/Diarrhea Tremor Observation of Outstretched Hands: 2= Slight Tremor Visible Yawning Observation: 0= None Anxiety or Irritability: 2=Irritable/Anxious Goose Flesh Skin: 0=Smooth Skin COWS Score: 13 S Progress Note (SOAP) Subjective: Tremor, sweating, interrupted sleep, constipation x 3-4 days (prefers dulcolax, refused citroma or MOM) Objective: 10/04/18 14:33 Last Vital Signs Temp Pulse Resp BP Pulse Ox 97.9 F 70 16 118/74 10/04/18 13:34 10/04/18 13:34 10/04/18 13:34 10/04/18 13:34 Laboratory Tests 10/03/18 10/03/18 10/03/18 08:50 10:40 10:40 WBC 3.7 L RBC 3.38 L Hgb 11.0 L Hct 32.8 L MCV 97.0 H MCH 32.6 MCHC 33.6 RDW 15.0 D Plt Count 106 L D MPV 8.7 Sodium 134 L Potassium 3.7 Chloride 97 L Carbon Dioxide 30 Anion Gap 7 L BUN 13.9 Creatinine 0.8 Est GFR (CKD-EPI)AfAm 118.20 Est GFR (CKD-EPI)NonAf 101.99 Random Glucose 73 L Calcium 9.4 Total Bilirubin 0.9 AST 171 H ALT 109 H Alkaline Phosphatase 167 H Total Protein 8.5 H Albumin 3.3 L Urine Color Dk yellow Urine Appearance Turbid Urine pH 5.5 Ur Specific [place] 1.023 Urine Protein Trace Urine Glucose (UA) Negative Urine Ketones Trace H Urine Blood Negative Urine Nitrite Negative Urine Bilirubin Negative Urine Urobilinogen 1.0 Ur Leukocyte Esterase Negative RPR Titer 10/03/18 10:40 WBC RBC Hgb Hct MCV MCH MCHC RDW Plt Count MPV Sodium Potassium Chloride Carbon Dioxide Anion Gap BUN Creatinine Est GFR (CKD-EPI)AfAm Est GFR (CKD-EPI)NonAf Random Glucose Calcium Total Bilirubin AST ALT Alkaline Phosphatase Total Protein Albumin Urine Color Urine Appearance Urine pH Ur Specific [place] Urine Protein Urine Glucose (UA) Urine Ketones Urine Blood Urine Nitrite Urine Bilirubin Urine Urobilinogen Ur Leukocyte Esterase RPR Titer Nonreactive Labs reviewed: mild anemia noted, LFTs elevated Assessment: 10/04/18 14:34 Withdrawal sxs Noted with mild anemia and elevated LFTs Plan: Continue detox Encouraged PO water hydration Mild anemia: most likely r/t alcoholism, follow up with PCP for management Elevated LFTs: related to alcoholism and hepatitis C; repeat hepatic panel in AM
[2018-10-04] MEDS: MELATONIN 5 MG TABLETS PO PRN (22:33)
[2018-10-04] MEDS: THIAMINE HCL 100 MG TABLET (FP) PO SCH (22:33)
[2018-10-05] MEDS ORDERED: chlordiazePOXIDE HCL 10 MG CAPSULE PO PRN
[2018-10-05] MEDS ORDERED: METHADONE HCL 5 MG TABLET (FOR DETOX USE ONLY) PO ONE (06:00)
[2018-10-05] MEDS: chlordiazePOXIDE HCL 10 MG CAPSULE PO SCH ×3 (06:14→22:35)
[2018-10-05] MEDS: LISINOPRIL 10 MG TABLET (FP) PO SCH (10:46)
[2018-10-05] MEDS: amLODIPine BESYLATE 5 MG TABLET (FP) PO SCH (10:46)
[2018-10-05] MEDS: PRENATAL VITAMINS W/ FOLIC ACID TABLET (FP) PO SCH (10:46)
[2018-10-05 13:39] LABS: BASO % 1.5 % (0-2.0); EOS % 2.7 % (0-4.5); HEMATOCRIT 35.1 % (35.4-49); HEMOGLOBIN 11.9 GM/dL (11.7-16.9); LYMPH % 30.6 % (8-40); MCH 33.1 pg (25.7-33.7); MCHC 33.8 g/dl (32.0-35.9); MEAN CELL VOLUME 97.8 fl (80-96); MEAN PLT VOLUME 9.5 fl (7.5-11.1); MONO % 11.6 % (3.8-10.2); NEUT % 53.6 % (42.8-82.8); PLATELET COUNT 106 K/MM3 (134-434); RBC 3.59 M/mm3 (4.00-5.60); RDW 14.7 % (11.9-15.9); WHITE BLOOD COUNT 4.5 K/mm3 (4.0-10.0)
[2018-10-05 14:12] LABS: ALBUMIN 3.6 g/dl (3.4-5.0); BILIRUBIN,DIRECT 0.4 mg/dL (0.0-0.2); BILIRUBIN,TOTAL 0.8 mg/dL (0.2-1); TOT PROT 8.9 g/dl (6.4-8.2)
--- NOTE | 2018-10-05 15:42 | PN ---
S CIWA - CIWA Score Nausea/Vomitin (Stomach Cramping.) Muscle Tremors: None Anxiety: 2 Agitation: 0-Normal Activity Paroxysmal Sweats: No Perspiration Orientation: 0-Oriented Tacttile Disturbances: 1-Very Mild Itch/Numbness Auditory Disturbances: 2-Mild Harshness/Frighten Visual Disturbances: 0-None Headache: 0-None Present CIWA-Ar Total Score: 7 S COWS - Scale Resting Pulse: 0= [place] 80 or Below Sweatin= No chills or Flushing Restless Observation: 1= Difficult to Sit Still Pupil Size: 0= Normal to Room Light Bone or Joint Aches: 2= Severe Diffuse Aches Runny Nose/ Eye Tearin= None GI Upset > 30mins: 1= Stomach Cramp Tremor Observation of Outstretched Hands: 0= None Yawning Observation: 1= 1-2x During Session Anxiety or Irritability: 2=Irritable/Anxious Goose Flesh Skin: 0=Smooth Skin COWS Score: 7 S Progress Note (SOAP) Subjective: Body Aches, Stomach Cramping. Objective: PATIENT A & O X 3, OBSERVED AMBULATING ON UNIT UNASSISTED. IN NO ACUTE DISTRESS. 10/05/18 15:40 Vital Signs Temperature 98.1 F 10/05/18 13:23 Pulse Rate 69 10/05/18 13:23 Respiratory Rate 18 10/05/18 13:23 Blood Pressure 100/58 L 10/05/18 13:23 O2 Sat by Pulse Oximetry (%) Laboratory Tests 10/03/18 10/03/18 10/03/18 08:50 10:40 10:40 WBC 3.7 L RBC 3.38 L Hgb 11.0 L Hct 32.8 L MCV 97.0 H MCH 32.6 MCHC 33.6 RDW 15.0 D Plt Count 106 L D MPV 8.7 Absolute Neuts (auto) Neutrophils % Lymphocytes % Monocytes % Eosinophils % Basophils % Nucleated RBC % Sodium 134 L Potassium 3.7 Chloride 97 L Carbon Dioxide 30 Anion Gap 7 L BUN 13.9 Creatinine 0.8 Est GFR (CKD-EPI)AfAm 118.20 Est GFR (CKD-EPI)NonAf 101.99 Random Glucose 73 L Calcium 9.4 Total Bilirubin 0.9 Direct Bilirubin AST 171 H ALT 109 H Alkaline Phosphatase 167 H Total Protein 8.5 H Albumin 3.3 L Urine Color Dk yellow Urine Appearance Turbid Urine pH 5.5 Ur Specific [place] 1.023 Urine Protein Trace Urine Glucose (UA) Negative Urine Ketones Trace H Urine Blood Negative Urine Nitrite Negative Urine Bilirubin Negative Urine Urobilinogen 1.0 Ur Leukocyte Esterase Negative RPR Titer 10/03/18 10/05/18 10/05/18 10:40 08:57 10:51 WBC 4.5 RBC 3.59 L Hgb 11.9 Hct 35.1 L MCV 97.8 H MCH 33.1 MCHC 33.8 RDW 14.7 Plt Count 106 L MPV 9.5 Absolute Neuts (auto) 2.4 Neutrophils % 53.6 Lymphocytes % 30.6 Monocytes % 11.6 H Eosinophils % 2.7 Basophils % 1.5 Nucleated RBC % 0 Sodium Potassium Chloride Carbon Dioxide Anion Gap BUN Creatinine Est GFR (CKD-EPI)AfAm Est GFR (CKD-EPI)NonAf Random Glucose Calcium Total Bilirubin 0.8 Direct Bilirubin 0.4 H AST 130 H ALT 107 H Alkaline Phosphatase 174 H Total Protein 8.9 H Albumin 3.6 Urine Color Urine Appearance Urine pH Ur Specific [place] Urine Protein Urine Glucose (UA) Urine Ketones Urine Blood Urine Nitrite Urine Bilirubin Urine Urobilinogen Ur Leukocyte Esterase RPR Titer Nonreactive LABS NOTED. RESULTS OF REPEAT CBC AND OF HEPATIC FUNCTION PANEL NOTED. WBC LEVEL NOW NOTED TO BE WITHIN NORMAL RANGE. SLIGHT IMPROVEMENT NOTED IN ANEMIA. PLATELET LEVEL UNCHANGED IN COMPARISON TO AMDISSION PLATELET LEVEL. AST LEVEL REDUCED IN COMPARISON TO ADMISSION AST. ALT AND ALKALINE PHOSPHATASE LEVELS SLIGHTLY INCREASED. 10/05/18 15:41 Assessment: 10/05/18 15:41 WITHDRAWAL SYMPTOMS. ANEMIA. THROMBOCYTOPENIA. ELEVATED LIVER ENZYMES. Plan: CONTINUE DETOX. PATIENT ADVISED TO FOLLOW-UP WITH [facility] AFTER DISCHARGE FROM DETOX FOR ELEVATED LIVER ENZYMES AND FOR ANEMIA AND THROMBOCYTOPENIA NOTED ON DETOX ADMISSION LABORATORY ASSESSMENT. PATIENT VERBALIZED UNDERSTANDING OF RECOMMENDATION. COPIES OF RESULTS OF ALL LABS DRAWN WHILE ADMITTED FOR DETOX GIVEN TO PATIENT. PATIENT SCHEDULED FOR D/C FROM DETOX UNIT TOMORROW AM.
[2018-10-05] MEDS: THIAMINE HCL 100 MG TABLET (FP) PO SCH (22:35)
[2018-10-05] MEDS: MELATONIN 5 MG TABLETS PO PRN (22:35)
[2018-10-06] MEDS ORDERED: chlordiazePOXIDE HCL 10 MG CAPSULE PO ONE (05:00)
[2018-10-06 09:10] VITALS: BP 102/63; PULSE 64; TEMP 97.9
--- NOTE | 2018-10-06 09:16 | DS ---
[facility] Detox Discharge Summary Admission Date: 10/02/18 Discharge Date: 10/06/18 - History Present History: Alcohol Dependence, Opioid Dependence, MMTP - Physical Exam Results Vital Signs: Vital Signs Temperature 97.9 F 10/06/18 09:09 Pulse Rate 64 10/06/18 09:09 Respiratory Rate 18 10/06/18 09:09 Blood Pressure 102/63 10/06/18 09:09 O2 Sat by Pulse Oximetry (%) Pertinent Admission Physical Exam Findings: pt arrived in withdrawals Laboratory Tests 10/03/18 10/03/18 10/03/18 08:50 10:40 10:40 WBC 3.7 L RBC 3.38 L Hgb 11.0 L Hct 32.8 L MCV 97.0 H MCH 32.6 MCHC 33.6 RDW 15.0 D Plt Count 106 L D MPV 8.7 Absolute Neuts (auto) Neutrophils % Lymphocytes % Monocytes % Eosinophils % Basophils % Nucleated RBC % Sodium 134 L Potassium 3.7 Chloride 97 L Carbon Dioxide 30 Anion Gap 7 L BUN 13.9 Creatinine 0.8 Est GFR (CKD-EPI)AfAm 118.20 Est GFR (CKD-EPI)NonAf 101.99 Random Glucose 73 L Calcium 9.4 Total Bilirubin 0.9 Direct Bilirubin AST 171 H ALT 109 H Alkaline Phosphatase 167 H Total Protein 8.5 H Albumin 3.3 L Urine Color Dk yellow Urine Appearance Turbid Urine pH 5.5 Ur Specific [place] 1.023 Urine Protein Trace Urine Glucose (UA) Negative Urine Ketones Trace H Urine Blood Negative Urine Nitrite Negative Urine Bilirubin Negative Urine Urobilinogen 1.0 Ur Leukocyte Esterase Negative RPR Titer 10/03/18 10/05/18 10/05/18 10:40 08:57 10:51 WBC 4.5 RBC 3.59 L Hgb 11.9 Hct 35.1 L MCV 97.8 H MCH 33.1 MCHC 33.8 RDW 14.7 Plt Count 106 L MPV 9.5 Absolute Neuts (auto) 2.4 Neutrophils % 53.6 Lymphocytes % 30.6 Monocytes % 11.6 H Eosinophils % 2.7 Basophils % 1.5 Nucleated RBC % 0 Sodium Potassium Chloride Carbon Dioxide Anion Gap BUN Creatinine Est GFR (CKD-EPI)AfAm Est GFR (CKD-EPI)NonAf Random Glucose Calcium Total Bilirubin 0.8 Direct Bilirubin 0.4 H AST 130 H ALT 107 H Alkaline Phosphatase 174 H Total Protein 8.9 H Albumin 3.6 Urine Color Urine Appearance Urine pH Ur Specific [place] Urine Protein Urine Glucose (UA) Urine Ketones Urine Blood Urine Nitrite Urine Bilirubin Urine Urobilinogen Ur Leukocyte Esterase RPR Titer Nonreactive labs noted aaox3 ambulating liver enzymes improving no s/s of withdrawals noted - Treatment Hospital Course: Detox Protocol Followed, Detoxed Safely, Responded well, Discharged Condition Good, Rehab Referral Accepted Patient has Accepted a Rehab Referral to: pt declined rehab; referred to [facility] - Medication Discharge Medications: Ambulatory Orders Amlodipine Besylate 5 mg PO DAILY 03/18/18 Cyanocobalamin [Vitamin B12 -] 100 mcg PO DAILY 03/18/18 Folic Acid - 1 mg PO DAILY 03/18/18 Multivitamin [Multiple Vitamins] 1 each PO DAILY 03/18/18 Thiamine HCl [Vitamin B1 -] 100 mg PO DAILY 03/18/18 Lisinopril [Prinivil] 10 mg PO DAILY 30 Days #30 tablet 10/05/18 - Diagnosis (1) Alcohol dependence with uncomplicated withdrawal Current Visit: Yes Status: Chronic (2) Anemia Current Visit: Yes Status: Chronic Qualifiers: Anemia type: unspecified type Qualified Code(s): D64.9 - Anemia, unspecified (3) Elevated liver enzymes Current Visit: Yes Status: Acute (4) Opioid dependence with withdrawal Current Visit: Yes Status: Chronic (5) Thrombocytopenia Current Visit: Yes Status: Acute (6) Hypertension Current Visit: Yes Status: Chronic Qualifiers: Hypertension type: essential hypertension Qualified Code(s): I10 - Essential (primary) hypertension (7) Nicotine abuse Current Visit: Yes Status: Chronic (8) Methadone maintenance therapy patient Current Visit: Yes Status: Chronic - AMA Did Patient Leave Against Medical Advice: No
== END 2018-10-06 09:05 | disposition home or self-care (01) | DRG 773 ==
LOC: YASAS 12:15 → Y6N 19:45
PROVIDERS: ADMIT Surgery; ATTEND Surgery
PROC: HZ2ZZZZ Detoxification Services for Substance Abuse Treatment (ICD-10-PCS; principal; 2018-10-02)
DX: F10.230 Alcohol dependence with withdrawal, uncomplicated (principal); F11.23 Opioid dependence with withdrawal; Z72.0 Tobacco use; I10 Essential (primary) hypertension; D64.9 Anemia, unspecified; D69.6 Thrombocytopenia, unspecified; R94.5 Abnormal results of liver function studies; B18.2 Chronic viral hepatitis C; R74.8 Abnormal levels of other serum enzymes
CPT/HCPCS: 36415; 80053; 80076; 81003; 85025; 85027; 86593; J0735